=== PATIENT | male | born 1970 | race Caucasian/White ===

== ENCOUNTER 2019-05-12 13:21 | Observation (INO) | payer BC ==
[2019-05-12] MEDS ORDERED: Acetaminophen 500 MG TAB ONE (13:37)
[2019-05-12 15:20] LABS: Troponin I Less than 0.010 ng/mL (< 0.028)
[2019-05-12] MEDS ORDERED: Acetaminophen 325 MG TAB PO PRN (16:15)
[2019-05-12] MEDS ORDERED: Nitroglycerin 0.4 MG TAB (25 Tab Bottle) PO PRN (16:15)
[2019-05-12] MEDS ORDERED: Ondansetron PF 4 MG/2 ML Vial IVP PRN (16:15)
[2019-05-12] MEDS ORDERED: Ondansetron ODT 4 MG TAB PO PRN (16:15)
[2019-05-12 17:53] LABS: Troponin I Less than 0.010 ng/mL (< 0.028)
[2019-05-12 20:52] LABS: Troponin I Less than 0.010 ng/mL (< 0.028)
[2019-05-12 21:24] VITALS: BMI 27.5
[2019-05-12] MEDS: Rosuvastatin 20 MG TAB PO SCH (21:36)
[2019-05-12] MEDS: Nicotine 14 MG PATCH TD SCH (21:37)
[2019-05-12] MEDS: Famotidine 20 MG TAB PO SCH (21:37)
[2019-05-12] MEDS: Metoprolol Tartrate 25 MG TAB PO SCH (21:40)
--- NOTE | 2019-05-13 00:20 | HP ---
PRIMARY CARE PHYSICIAN: None. CHIEF COMPLAINT: Chest pain. HISTORY OF PRESENT ILLNESS: Mr. Hyman is a 49-year-old man with a past medical history of hypertension and coronary artery disease, status post 2 stents placed in 2017. The patient states over the last few days, he has been experiencing some ongoing chest pain, shortness of breath, and dizziness that became worse when he was at work sitting at his desk earlier this morning. He states that during this time, symptoms worsened. He had felt nauseous; however, denies any vomiting. He had denied any fever, chills, any headache, palpitations, abdominal pain, or change in his stool. 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 Amadeo Mcgarry, he states that he has not seen Dr. Mcgarry in over a year. He states he has been taking his home medications as directed. His initial workup included serial troponins, which were found to be negative x2. Normal D-dimer. He underwent a portable chest x-ray, which was also found to be normal. His chest pain is now resolved status post a dose of oral nitroglycerin. REVIEW OF SYSTEMS: All other systems reviewed and found to be negative unless mentioned in the HPI. PAST MEDICAL HISTORY: Hypertension and coronary artery disease, status post stents x2. PAST SURGICAL HISTORY: Cardiac catheterization with 2 cardiac stents, vasectomy, and hernia surgery back in the 1970s. PSYCHIATRIC HISTORY: None. SOCIAL HISTORY: The patient drinks socially roughly once a week. He also states that he smokes cigarettes on occasion; however, denies any illicit drug use. The patient lives at home with his family. KNOWN ALLERGIES: No known drug allergies. CURRENT HOME MEDICATIONS: 1. Aspirin 325 mg oral daily. 2. Clopidogrel 75 mg oral daily. 3. Crestor 40 mg oral at bedtime. 4. Lisinopril 20 mg oral daily. 5. Ranexa 1000 mg oral twice daily. 6. Metoprolol 25 mg b.i.d. PHYSICAL EXAMINATION: VITAL SIGNS: BP 118/82, pulse 61, respirations 19, temperature 98.4 degrees Fahrenheit, O2 saturations 95% on room air. GENERAL: The patient is awake, alert, and oriented x3. He is currently lying comfortably in bed and in no acute distress. The patient's family is at bedside. HEENT: Atraumatic, normocephalic. Pupils are round and reactive to light. Extraocular muscles intact. Moist mucous membranes noted. NECK: Soft, supple. Trachea midline. CARDIOVASCULAR: Positive S1, S2. Regular rate and rhythm. No murmur auscultated. RESPIRATORY: Clear to auscultation bilaterally. No wheezes, rales, or rhonchi. ABDOMEN: Soft, nontender. Bowel sounds present. MUSCULOSKELETAL: Strength 5+ bilaterally upper and lower extremities. Moves all extremities equal. Pedal and radial pulses 2+ bilaterally. No edema noted. NEUROLOGIC: Cranial nerves 2 through 12 grossly intact. No focal deficits noted. Speech intact and normal. Gait not assessed. SKIN: Warm, dry, and intact. No rashes. No ulceration noted. PSYCHIATRIC: Good mood and affect. LABORATORY DATA: WBC 7.6, RBC 5.06, hemoglobin 14.9, hematocrit 43.3, platelet 155. D-dimer less than 0.27. Sodium 138, potassium 4.3, anion gap 16, BUN 13, creatinine 0.93, estimated GFR 87, glucose 188, AST 28, ALT 38. Troponin less than 0.010 x2. BNP 14.2. Lipase 53. DIAGNOSTIC IMAGING: Portable chest x-ray showed no acute findings. ASSESSMENT AND PLAN: 1. Chest pain, the patient will undergo cardiac workup including a cardiac stress test along with an echocardiogram to further evaluate his cardiac status. He will be resumed on his home medications. Depending on stress test and his echocardiogram, Cardiology Services consult will be considered. 2. Hypertension. Continue the patient's home regimen. However, due to the patient's bradycardia on arrival, his home dose of metoprolol will be cut in half to 12.5 mg twice daily and he will be closely monitored and if he tolerates this, he may or may not be able to go back on his regular 25 mg twice daily at discharge. 3. History of coronary artery disease. Continue home regimen including aspirin, Plavix, Ranexa along with lisinopril and metoprolol. We will add nitroglycerin as needed for further chest pain coverage. 4. Hyperlipidemia. Continue Crestor and check a lipid panel in the morning. 5. Deep venous thrombosis and gastrointestinal prophylaxis. 6. Code status, full code. DISPOSITION: Pending further workup and clinical findings, the patient will likely be discharged home in the next 1 to 2 days. Job ID: [id number]
[2019-05-13 04:38] LABS: #Eosinphils 0.1 thou/uL (0.0-0.7); #Lymphocytes 1.8 thou/uL (1.20-3.40); #Monocytes 0.7 thou/uL (0.11-0.59); #Neutrophils 5.9 thou/uL (1.40-6.50); %Basophils 0.4 % (0.0-1.0); %Eosinophils 1.7 % (0.0-10.0); %Lymphocytes 20.6 % (21.0-51.0); %Monocytes 8.1 % (0.0-10.0); %Neutrophils 69.2 % (42.0-75.0); Hemoglobin 14.4 g/dL (14.0-18.0); Mean Corpuscular HGB CONC 33.9 g/dL (32.0-36.0); Mean Corpuscular Hemoglobin 30.4 pg (27.0-31.0); Mean Corpuscular Volume 89.9 fL (78.0-98.0); Mean Platelet Volume 8.8 fL (7.4-10.4); Platelet Count 141 thou/uL (130-400); RBC Distribution Width 11.2 % (11.5-14.5); Red Blood Cell (RBC) Count 4.74 mill/uL (4.70-6.10); White Blood Cell (WBC) Count 8.6 thou/uL (4.8-10.8)
[2019-05-13 05:04] LABS: Anion Gap 12 mmol/L (10-20); BUN (Urea Nitrogen) 13 mg/dL (8.9-20.6); Calc. Creatinine Clearance 121 mL/min (70-130); Calcium 9.1 mg/dL (7.8-10.44); Carbon Dioxide 27 mmol/L (22-29); Cardiac Risk 2.6 (Less than 4.5); Chloride 104 mmol/L (98-107); Cholesterol 90 mg/dl (< 200 Desired); Estimated GFR-MDRD Greater than 90; Glucose 103 mg/dL (70-105); HDL Cholesterol 34 mg/dL (>60 Neg Risk); LDL Cholesterol, Calculated 26 mg/dL; Sodium 139 mmol/L (136-145); Triglycerides 149 mg/dL (Less than 150)
[2019-05-13] MEDS: Metoprolol Tartrate 25 MG TAB PO SCH ×2 (08:19→21:55)
[2019-05-13] MEDS: Clopidogrel Bisulfate 75 MG TAB PO SCH (08:20)
[2019-05-13] MEDS: Enoxaparin Sodium 40 MG/0.4 ML SYRINGE SC SCH (08:20)
[2019-05-13] MEDS: Famotidine 20 MG TAB PO SCH ×2 (08:21→21:55)
[2019-05-13] MEDS: Lisinopril 20 MG TAB PO SCH (08:25)
[2019-05-13] MEDS ORDERED: Aspirin 325 mg Enteric Coated Tablet PO SCH (09:00)
[2019-05-13] MEDS ORDERED: Regadenoson 0.4 MG/5 ML SYRINGE ONE (10:20)
[2019-05-13] MEDS ORDERED: hydrALAZINE 20 MG/ML VIAL SLOW IVP PRN (12:19)
--- NOTE | 2019-05-13 12:42 | NM ---
CARDIAC SPECT: CLINICAL HISTORY: 49-year-old male with chest pain, coronary artery disease, stent placement, hypertension, and smoker. TECHNIQUE: A myocardial perfusion scan was performed using the single isotope one day protocol with technetium-9 9m sestamibi. 11 mCi were injected intravenously for the rest exam followed by 33 mCi for the stress exam. Pharmacologic stress with Lexiscan was monitored and interpreted by Irineo Mckeon. FINDINGS: Homogeneous tracer distribution is seen in the myocardial segments on the rest images. The stress luis daniel ges demonstrate a small area of mildly decreased tracer localization in the distal anteroseptal wall. GATED SPECT LVEF: 49%. WALL MOTION EXAM: Normal. IMPRESSION: Small area of mild ischemia in the distal anteroseptal wall with complete reversibility. POS: ALEJANDRO
[2019-05-13] MEDS ORDERED: cloNIDine 0.1 MG TAB PO PRN (15:39)
--- NOTE | 2019-05-13 15:42 | PDOC.PN ---
- Subjective Encounter Start Date: 05/13/19 Encounter Start Time: 15:41 Pt seenf or followup re: chest pain. Denies any chest pain at this time. Feels better. - Objective Resuscitation Status - Order Detail: 05/12/19 16:15 Resuscitation Status Routine Co-Sign Provider: Resuscitation Status: FULL: Full Resuscitation MAR Reviewed: Yes Vital Signs & Weight: Vital Signs (12 hours) Temp Pulse Resp BP BP Pulse Ox 05/13/19 12:59 58 L 174/104 H 05/13/19 12:09 98.0 F 60 14 172/96 H 97 05/13/19 08:15 97.8 F 58 L 15 165/96 H 96 05/13/19 03:50 98.3 F 53 L 18 131/79 95 Weight Weight 170 lb 11.2 oz I&O: 05/12/19 05/13/19 05/14/19 06:59 06:59 06:59 Intake Total 300 Output Total 620 Balance -320 Result Diagrams: 05/14/19 04:35 05/14/19 04:35 EKG Reviewed by me: Yes (Tele: NSR) Phys Exam - Physical Examination Constitutional: NAD HEENT: moist MMs Neck: supple Respiratory: clear to auscultation bilateral Cardiovascular: RRR Gastrointestinal: soft Neurological: moves all 4 limbs Psychiatric: normal affect Dx/Plan (1) Chest pain Code(s): R07.9 - CHEST PAIN, UNSPECIFIED Status: Acute Comment: s/p stress test, awaiting cardiology input. (2) Hypertension Code(s): I10 - ESSENTIAL (PRIMARY) HYPERTENSION Status: Chronic Comment: Pt' s metoprolol dose was decreased due to bradycardia. Add amlodipine for elevated blood pressure. - Plan * . Review of Systems - Review of Systems Cardiovascular: negative: chest pain, palpitations, orthopnea, paroxysmal nocturnal dyspnea, edema, light headedness Gastrointestinal: negative: Nausea, Vomiting, Abdominal Pain, Diarrhea, Constipation, Melena, Hematochezia - Medications/Allergies Allergies/Adverse Reactions: Allergies Allergy/AdvReac Type Severity Reaction Status Date / Time No Known Allergies Allergy Verified 05/13/19 04:01 Medications: Current Medications Acetaminophen (Tylenol) 650 mg PO Q4H PRN PRN Reason: Headache/Fever/Mild Pain (1-3) Aspirin (Ecotrin) 325 mg PO DAILY [facility] Last Admin: 05/13/19 08:20 Dose: Not Given Clonidine (Catapres) 0.1 mg PO Q4H PRN PRN Reason: SBP Greater Than 170 Clopidogrel Bisulfate (Plavix) 75 mg PO DAILY [facility] Last Admin: 05/13/19 08:20 Dose: Not Given Enoxaparin Sodium (Lovenox) 40 mg SC 0900 [facility] Last Admin: 05/13/19 08:20 Dose: Not Given Famotidine (Pepcid) 20 mg PO BID [facility] Last Admin: 05/13/19 08:21 Dose: Not Given Hydralazine HCl (Apresoline) 10 mg SLOW IVP Q6H PRN PRN Reason: SBP Greater Than 170 Last Admin: 05/13/19 12:59 Dose: 10 mg Lisinopril (Zestril) 20 mg PO DAILY [facility] Last Admin: 05/13/19 08:25 Dose: Not Given Metoprolol Tartrate (Lopressor) 12.5 mg PO BID [facility] Last Admin: 05/13/19 08:19 Dose: Not Given Nicotine (Nicoderm Patch) 14 mg TD Q24HR [facility] Last Admin: 05/12/19 21:37 Dose: Not Given Nitroglycerin (Nitrostat) 0.4 mg PO Q5MIN PRN PRN Reason: Chest Pain Ondansetron HCl (Zofran Odt) 4 mg PO Q6H PRN PRN Reason: Nausea/Vomiting Ondansetron HCl (Zofran) 4 mg IVP Q6H PRN PRN Reason: Nausea/Vomiting Ranolazine (Ranexa) 1,000 mg PO BID [facility] Last Admin: 05/13/19 08:19 Dose: Not Given Rosuvastatin Calcium (Crestor) 40 mg PO HS [facility] Last Admin: 05/12/19 21:36 Dose: 40 mg
[2019-05-13] MEDS ORDERED: Amlodipine 5 MG TAB PO SCH (16:15)
[2019-05-13] MEDS ORDERED: Hydrochlorothiazide 25 MG TAB PO SCH (18:00)
--- NOTE | 2019-05-13 18:29 | CON ---
DATE OF CONSULTATION: 05/13/2019 REASON FOR CONSULTATION: Shortness of breath, chest pain, abnormal stress study. HISTORY OF PRESENT ILLNESS: Mr. Hyman is a very pleasant 49-year-old gentleman with past medical history of CAD, status post stent placement x2 in August 2016. This was in [place]. He states at that time he had significant shortness of breath with limited ambulation. He states he initially underwent coronary angiography and was found to have 70% stenosis, treated medically. He had recurrent symptoms and therefore underwent stent placement. He states in the interim he has had a stress study done in addition to treatment with Ranexa by his miller head at [place]. He has not been seeing his miller head at [place] for over a year. He recently presented with hypertensive urgency. Blood pressure was 220/110. He did have shortness of breath with this episode in addition to mild chest pain. The pain was in the lower sternal region and was a new finding. He is currently pain-free. Recent stress study did suggest a very small area of ischemia present along the distal anteroseptal wall with LVEF 49%. PAST MEDICAL HISTORY: CAD, status post stent placement, vasectomy, and hernia repair. SOCIAL HISTORY: He does intermittently smoke. Positive alcohol use. ALLERGIES: NONE. PAST SURGICAL HISTORY: As above. REVIEW OF SYSTEMS: A 10-point review of systems is reviewed as above, otherwise negative. PHYSICAL EXAMINATION: VITAL SIGNS: Blood pressure 160/99, pulse 63, temperature 98.2. GENERAL: Patient is a pleasant male who is in no acute distress. The patient appears their stated age. NEUROLOGIC: The patient is alert and oriented x3 with no focal neurologic deficits. HEENT: Sclerae without icterus. Mouth has moist mucous membranes with normal pallor. NECK: No JVD. Carotid upstroke brisk. No bruits bilaterally. LUNGS: Clear to auscultation with unlabored respirations. BACK: No scoliosis or kyphosis. CARDIAC: Regular rate and rhythm with normal S1 and S2. No S3 or S4 noted. No significant rubs, murmurs, thrills, or gallops noted throughout the precordium. PMI is not displaced. There is no parasternal heave. ABDOMEN: Soft, nontender, nondistended. No peritoneal signs present. No hepatosplenomegaly. No abnormal striae. EXTREMITIES: 2+ femoral and 2+ dorsalis pedis pulses. No cyanosis, clubbing, or edema. SKIN: No gross abnormalities. PERTINENT LABORATORY DATA: Hemoglobin 14.4, creatinine 0.82. Troponin negative. IMPRESSION: 1. Hypertensive urgency. 2. Chest pain. 3. Coronary artery disease. 4. Abnormal stress study. RECOMMENDATIONS: Mr. Hyman's recent stress study is felt to be low risk. He has a very small area in the distal anteroseptal region only. His LVEF is at lower limits of normal. I discussed proceeding with coronary angiography versus medical therapy. Given the risks and benefits of both, he decided to proceed with medical therapy. At this point, it would be utmost important to proceed with aggressive blood pressure management. He is currently on amlodipine 5 mg q.a.m. We will decrease his aspirin 81 q.a.m. We will also recommend hydrochlorothiazide 12.5 mg one p.o. first dose now, then 12.5 In a.m. Once the blood pressure managed, we would be happy to follow up as an outpatient. Job ID: [id number] [facility]
[2019-05-13] MEDS: Nicotine 14 MG PATCH TD SCH (21:56)
[2019-05-13] MEDS: Rosuvastatin 20 MG TAB PO SCH (21:57)
[2019-05-14 05:01] LABS: #Eosinphils 0.2 thou/uL (0.0-0.7); #Lymphocytes 1.8 thou/uL (1.20-3.40); #Monocytes 0.7 thou/uL (0.11-0.59); %Basophils 0.3 % (0.0-1.0); %Eosinophils 2.5 % (0.0-10.0); %Lymphocytes 23.1 % (21.0-51.0); %Monocytes 8.9 % (0.0-10.0); %Neutrophils 65.2 % (42.0-75.0); Hemoglobin 16.2 g/dL (14.0-18.0); Mean Corpuscular HGB CONC 32.7 g/dL (32.0-36.0); Mean Corpuscular Hemoglobin 29.3 pg (27.0-31.0); Mean Corpuscular Volume 89.5 fL (78.0-98.0); Mean Platelet Volume 8.8 fL (7.4-10.4); Platelet Count 158 thou/uL (130-400); RBC Distribution Width 11.2 % (11.5-14.5); Red Blood Cell (RBC) Count 5.52 mill/uL (4.70-6.10); White Blood Cell (WBC) Count 7.6 thou/uL (4.8-10.8)
[2019-05-14 05:23] LABS: Anion Gap 13 mmol/L (10-20); BUN (Urea Nitrogen) 13 mg/dL (8.9-20.6); Calc. Creatinine Clearance 118 mL/min (70-130); Carbon Dioxide 27 mmol/L (22-29); Chloride 102 mmol/L (98-107); Estimated GFR-MDRD Greater than 90; Glucose 116 mg/dL (70-105); Sodium 138 mmol/L (136-145)
[2019-05-14] MEDS: Clopidogrel Bisulfate 75 MG TAB PO SCH (08:14)
[2019-05-14] MEDS: Famotidine 20 MG TAB PO SCH (08:15)
[2019-05-14] MEDS: Enoxaparin Sodium 40 MG/0.4 ML SYRINGE SC SCH (08:15)
[2019-05-14] MEDS: Lisinopril 20 MG TAB PO SCH (08:17)
[2019-05-14] MEDS: Metoprolol Tartrate 25 MG TAB PO SCH (08:19)
[2019-05-14] MEDS ORDERED: Amlodipine 5 MG TAB PO SCH (09:00)
[2019-05-14] MEDS ORDERED: Aspirin 81 mg Enteric Coated Tablet PO SCH (09:00)
[2019-05-14] MEDS ORDERED: Hydrochlorothiazide 25 MG TAB PO SCH (09:00)
[2019-05-14 11:25] VITALS: BP 144/87; TEMP 98.3
--- NOTE | 2019-05-14 22:23 | DIS ---
DATE OF ADMISSION: 05/12/2019 DATE OF DISCHARGE: 05/14/2019 PRIMARY CARE PROVIDER: None. DISCHARGE DIAGNOSES: 1. Hypertensive urgency. 2. Chest pain. 3. Coronary artery disease. 4. Abnormal stress study. 5. Bradycardia. CONDITION OF PATIENT ON THE DAY OF DISCHARGE: Stable. I assessed Mr. Hyman on the day of discharge. He denies any chest pain or shortness of breath. Vital signs are stable. S1 and S2 are heard, regular. Lungs are clear to auscultation bilaterally. DISCHARGE MEDICATIONS: 1. Aspirin dose decreased to 81 mg daily. 2. Plavix 75 mg daily. 3. Lisinopril 20 mg at bedtime. 4. Ranexa 1000 mg 2 times a day. 5. Crestor 40 mg daily. 6. Nicoderm CQ 14 mg patch daily. 7. Amlodipine 5 mg daily. 8. Hydrochlorothiazide 12.5 mg daily. 9. Metoprolol tartrate dose decreased to 12.5 mg 2 times a day. CONSULTATIONS DURING THIS HOSPITALIZATION: Cardiology, Dr. Driver. HOSPITAL COURSE: Mr. Hyman is a pleasant 49-year-old gentleman who was admitted to [facility] on 05/12/2019, for chest pain. He was also found to be bradycardic. His beta antonieta dose was decreased. He underwent nuclear stress test, which showed a small area of mild ischemia in the distal anteroseptal wall with complete reversibility. Cardiology Service was consulted. It was felt to be low risk. After discussion with Cardiology Service, the patient decided to proceed with medical therapy. His blood pressures were elevated during this hospitalization. Therefore, amlodipine and hydrochlorothiazide were added. He has been advised to check his blood pressure and heart rate 3 times a day and show the readings to his primary care provider. He will also need to follow up with Cardiology Service. FOLLOWUP: With primary care provider and Cardiology Service. LABORATORY DATA: On the day of discharge, he has normal electrolytes, normal creatinine, and an unremarkable CBC. Many thanks for allowing me to participate in your patient's care. Please feel free to contact me with any questions or concerns. DISCHARGE DESTINATION: Home. Job ID: [id number]
== END 2019-05-14 12:40 | disposition home or self-care (01) ==
LOC: ERS 13:21 → 2NO 17:52
PROVIDERS: ADMIT Internal Medicine; ATTEND Internal Medicine
DX: R07.9 Chest pain, unspecified (principal); R06.02 Shortness of breath; R42 Dizziness and giddiness; I16.0 Hypertensive urgency; I10 Essential (primary) hypertension; I25.10 Atherosclerotic heart disease of native coronary artery without angina pectoris; F17.210 Nicotine dependence, cigarettes, uncomplicated; Z79.82 Long term (current) use of aspirin; Z79.899 Other long term (current) drug therapy; Z95.5 Presence of coronary angioplasty implant and graft
CPT/HCPCS: 36415; 78452; 80048; 80061; 84443; 85025; 85379; 93005; 93017; 93306; 96374; A9500; G0378; J0360; J1650; J2785

== ENCOUNTER 2019-12-31 11:36 | Observation (INO) | payer BC, OTHER ==
[2019-12-31] MEDS ORDERED: hydrALAZINE 20 MG/ML VIAL SLOW IVP PRN (13:01)
[2019-12-31] MEDS ORDERED: Senokot S 8.6-50 MG TAB PO PRN (13:03)
[2019-12-31] MEDS ORDERED: Ondansetron PF 4 MG/2 ML Vial IVP PRN (13:03)
[2019-12-31] MEDS ORDERED: Calcium Carbonate 500 MG ChewTAB PO PRN (13:03)
[2019-12-31] MEDS ORDERED: Ondansetron ODT 4 MG TAB PO PRN (13:03)
[2019-12-31] MEDS ORDERED: Acetaminophen 325 MG TAB PO PRN (13:03)
[2019-12-31] MEDS ORDERED: Aspirin Chewable 81 MG TAB ONE (13:08)
--- NOTE | 2019-12-31 14:55 | MRI ---
MRI BRAIN WITHOUT CONTRAST: Date: 12/31/2019 INDICATION: Stroke. FINDINGS: Ventricles have normal size and position. No evidence of restricted diffusion. No evidence of acute i nfarct, mass, or hemorrhage. No significant white matter abnormality. The intracranial internal carot id arteries and cerebral arteries show flow-voids. Dural venous sinuses are patent. Small mucus retention cyst anterior left maxillary sinus measuring approximately 1.0 cm. Paranasal si nuses otherwise appear clear. IMPRESSION: No evidence of acute process. POS: ALEJANDRO
[2019-12-31 15:08] VITALS: BMI 27.9
--- NOTE | 2019-12-31 18:17 | HP ---
PRIMARY CARE PHYSICIAN: Dr. Valentino Rios. PRIMARY MINERAL INDUSTRY TEACHER: Dr. Driver. CHIEF COMPLAINT: Lightheadedness. HISTORY OF PRESENT ILLNESS: The patient is a 49-year-old male with coronary artery disease, status post stent placement, hypertension, hyperlipidemia, and factor V Leiden, presented to the hospital with above complaints. The patient had an episode of lightheadedness earlier this morning while he was at work. It was gradual in onset. He was unable to focus. He describes that he was not able to think clearly. The above episode lasted for about 20 minutes or so. He also had approximately 1 minute duration of unresponsiveness. His face was flushed at that time. There was no seizure-like activity reported. No tongue biting or urinary incontinence reported. His symptoms resolved before he arrived to [facility]. He is unable to recall the details on the above episode. According to the spouse, he has some issues with memory recently. He had to reset his e-mail password 3 times last week. PAST MEDICAL HISTORY: 1. Coronary artery disease, status post stent placement. 2. Hypertension. 3. Hyperlipidemia. 4. Factor V Leiden. PAST SURGICAL HISTORY: 1. Cardiac catheterization. 2. Vasectomy. 3. Hernia surgery. ALLERGIES: NO KNOWN DRUG ALLERGIES. CURRENT HOME MEDICATIONS: 1. Plavix 75 mg daily. 2. Lisinopril 20 mg at bedtime. 3. Ranexa 1000 mg b.i.d. 4. Crestor 40 mg daily. 5. Amlodipine 5 mg daily. 6. Hydrochlorothiazide 12.5 mg daily. SOCIAL HISTORY: The patient continues to smoke on and off. He lives at home with his family. He drinks alcohol socially. FAMILY HISTORY: Negative for premature coronary artery disease. There is family history of Factor V Leiden deficiency. REVIEW OF SYSTEMS: All other review of systems was reviewed and were found negative. PHYSICAL EXAMINATION: VITAL SIGNS: In the emergency room showed temperature 98, respirations of 18, pulse of 67, blood pressure of 139/94, and O2 saturation 98% on room air. GENERAL: A 49-year-old male, in no apparent distress. HEENT: Head, atraumatic and normocephalic. Sclerae are anicteric. Moist mucous membranes. No oral lesion. NECK: Supple. No JVD. No carotid bruit. LUNGS: Clear to auscultation bilaterally. No wheezing, rales, or rhonchi. HEART: S1 and S2 present. Regular rate and rhythm. No rubs or gallops. ABDOMEN: Soft and nontender. Bowel sounds present. No rebound or guarding. EXTREMITIES: No edema or calf tenderness. NEUROLOGIC: Cranial nerves 2 through 12 are normal on examination. Power was 5/5 in all extremities. PSYCHIATRY: Alert, awake, and oriented x3. Normal affect. SKIN: Warm and dry. LYMPH NODES: No palpable lymph nodes in the neck. PERIPHERAL VASCULAR: Radial pulses palpable bilaterally. MUSCULOSKELETAL: No joint swelling or tenderness. LABORATORY DATA: EKG by my review showed sinus rhythm with nonspecific ST-T wave changes. Urine drug screen was negative. WBC 11.6 with hemoglobin 16.1 and platelet 203. PT/INR and PTT in normal range. Chemistry showed sodium 140, potassium 3.9, chloride 104, bicarb 26, BUN 14, and creatinine 0.81. LFTs in normal range. Troponin was negative. CT scan of the brain by my review was negative for acute findings. Chest x-ray by my review was negative. IMPRESSION: 1. Lightheadedness/dizziness. Rule out cerebrovascular accident. 2. Coronary artery disease, status post stent placement. 3. Hypertension. 4. Hyperlipidemia. 5. History of factor V Leiden. 6. Tobacco dependence. PLAN: The patient will be monitored in the stroke unit. We will complete stroke workup including echocardiogram, carotid Doppler, and MRI of the brain. Neurology will be consulted. We will add 81 mg aspirin for now. We will reduce the dose of amlodipine and lisinopril for now. Continue statins. Fasting lipid profile in a.m. The patient will benefit from an event monitor as outpatient. The patient and the family understand the above plan of care. Job ID: [id number]
--- NOTE | 2019-12-31 18:17 | ULT ---
EXAM: Carotid Doppler PROVIDED CLINICAL HISTORY: TIA COMPARISON: None FINDINGS: Grayscale and color Doppler sonography with spectral analysis was performed of the extracranial carot id system bilaterally. There is no evidence for a hemodynamically significant internal carotid artery stenosis by peak systolic velocity or ratio criteria. Antegrade flow is seen in the vertebral arteries. IMPRESSION: No sonographic evidence for a hemodynamically significant internal carotid artery stenosis.
[2019-12-31] MEDS: Lisinopril 5 MG TAB PO SCH (20:32)
[2019-12-31] MEDS: Amlodipine 5 MG TAB PO SCH (20:32)
[2019-12-31] MEDS: Rosuvastatin 20 MG TAB PO SCH (20:33)
[2019-12-31] MEDS ORDERED: Atorvastatin Calcium 40 MG TAB PO SCH (21:00)
[2020-01-01 05:15] LABS: Cardiac Risk 2.2 (Less than 4.5)
[2020-01-01] MEDS: Aspirin 81 mg Enteric Coated Tablet PO SCH (08:40)
[2020-01-01] MEDS: Lisinopril 5 MG TAB PO SCH ×2 (08:40→20:28)
[2020-01-01] MEDS: Clopidogrel Bisulfate 75 MG TAB PO SCH (08:40)
[2020-01-01] MEDS: Amlodipine 5 MG TAB PO SCH ×2 (08:41→20:28)
[2020-01-01] MEDS ORDERED: FLU VACC QS2019-20(6MOS UP)/PF 60 MCG/0.5 ML SYRINGE IM ONE (09:00)
--- NOTE | 2020-01-01 12:15 | CON ---
DATE OF TELEMEDICINE CONSULTATION: 01/01/2020 CHIEF COMPLAINT: Altered mental status. HISTORY OF PRESENT ILLNESS: The patient is a 49-year-old man, who was brought to the emergency room following an incident at work. He was at his desk yesterday on Thursday, doing his work, everything was fine, he zoned out. He was told by his coworkers that they were snapping fingers at him, he could not respond. He became unresponsive. No witnessed tonic chronic activity was noted. He had approximately 1 minute of unresponsiveness. His face was flushed per his chart. His symptoms resolved after he came to the ER and he thinks his symptoms may have lasted about 30 minutes or so. This never happened to him before. Recently, he has had some issues with his memory in the past two weeks or so and he had to reset his email password a few times. PREVIOUS MEDICAL HISTORY: Coronary artery disease, status post stent placement; hypertension; hyperlipidemia; factor V Leiden mutation. SURGICAL HISTORY: Cardiac catheterization, vasectomy, and hernia surgery. ALLERGIES: NO KNOWN DRUG ALLERGIES. MEDICATIONS: At home; 1. Plavix. 2. Lisinopril. 3. Ranexa. 4. Crestor. 5. Amlodipine and hydrochlorothiazide. SOCIAL HISTORY: He does smoke on and off. He lives at home with his family. 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 FAMILY HISTORY: Positive for Factor V Leiden mutation in his mother and sister , not in his brother. There are also other members on the maternal side of the family which have similar hematological abnormality. There is also history of hypertension in his mother. Mother also had leg surgery and she has restless legs. Father is 68 also and has coronary artery disease. No family history of stroke. REVIEW OF SYSTEMS: PULMONARY: Negative for shortness of breath or cough. GI: Negative for nausea, vomiting, or diarrhea. NEUROLOGIC: Positive for altered mental status, altered level of consciousness for about 30 minutes or so. OPHTHALMOLOGIC: Negative for any vision changes. DERMATOLOGIC: Negative for any skin lesions or rash. LABORATORY WORKUP: White count 11.6, hemoglobin 16.1, hematocrit 49.1, platelets 203. Chemistry; sodium 140, potassium 3.9, chloride 104, bicarb 26, BUN 14, creatinine 0.81. TSH is normal. Lipid profile is within normal limits. Urine screen is negative. Urine tox screen is also negative. His MRI was negative for any acute stroke or acute event or any structural abnormalities. PHYSICAL EXAMINATION: VITAL SIGNS: Blood pressure 112/74, pulse 54, temperature 98.2. GENERAL APPEARANCE: Well-built, well-nourished man. CHEST: Clear vesicular breathing. CARDIOVASCULAR: S1 and S2 heard. No murmurs. ABDOMEN: Soft and nontender. No organomegaly noted. NEUROLOGIC: Higher intellectual functions, normal orientation to time, place, and person. Appropriate conversation. Cranial nerves 2 through 12, normal extraocular movements. Pupils are reactive to light bilaterally and no facial asymmetry noted. Normal sensation of face bilaterally. Tongue midline, no atrophy noted, normal elevation of palate. Motor; bulk normal, tone normal. Strength is 5/5 in iliopsoas, hamstrings, quadriceps, ankle dorsiflexion, plantar flexion, deltoid, biceps, triceps, wrist extension and flexion, finger extension and flexion bilaterally. Sensory examination, normal to touch bilaterally in upper and lower extremities. Cerebellar exam, normal [id number] and [id number]. Deep tendon reflexes 2+ throughout. IMPRESSION: The patient with alteration in mental status, which lasted about 30 minutes and he had no witnessed seizure activity and this is unusual for him. He is generally very healthy, and stroke risk factor is Factor V Leiden mutation, but he did not have an acute stroke at this time. This is more likely an atypical seizure, history and description do not sound like transient global amnesia. I think he may have had a seizure. Since this is the first seizure, he does not need to be medicated. RECOMMENDATIONS: Please complete his EEG, make sure it is normal prior to discharge, and he can follow up with Dr. Pham as outpatient. He already has a followup with his mattress stripper this week. Job ID: [id number] [facility]
--- NOTE | 2020-01-01 13:08 | PDOC.HOSPP ---
- Subjective Encounter Date: 01/01/20 Encounter Time: 10:30 Subjective: Patient seen and examined for AMS. No new focal deficits. No new complaints. No overnight events - Objective Vital Signs & Weight: Vital Signs (12 hours) Temp Pulse Resp BP BP BP Pulse Ox 01/01/20 12:53 98.0 F 56 L 18 119/84 97 01/01/20 11:15 117/78 01/01/20 09:35 112/74 140/79 01/01/20 08:41 54 L 01/01/20 08:40 54 L 01/01/20 07:50 98.2 F 54 L 16 122/77 97 01/01/20 04:00 98.2 F 60 16 115/67 96 Weight Weight 173 lb I&O: 12/31/19 01/01/20 01/02/20 06:59 06:59 06:59 Intake Total 660 Balance 660 Additional Labs: Laboratory Tests 01/01/20 01/01/20 04:23 04:23 Vitamin B12 366 Folate 9.10 Radiology Reviewed by me: No (Carotid - negative) EKG Reviewed by me: Yes (Tele SR) Hospitalist ROS - Review of Systems Respiratory: denies: cough, dry, shortness of breath, hemoptysis, SOB with excertion, pleuritic pain, sputum, wheezing, other Cardiovascular: denies: chest pain, palpitations, orthopnea, paroxysmal noc. dyspnea, edema, light headedness, other Gastrointestinal: denies: nausea, vomiting, abdominal pain, diarrhea, constipation, melena, hematochezia, other - Medication Medications: Active Medications Generic Name Dose Route Start Last Admin Trade Name Evelyn PRN Reason Stop Dose Admin Amlodipine Besylate 2.5 mg 12/31/19 21:00 01/01/20 08:41 Norvasc PO 2.5 mg BID BURTON Administration Aspirin 81 mg 01/01/20 09:00 01/01/20 08:40 Ecotrin PO 81 mg DAILY BURTON Administration Clopidogrel Bisulfate 75 mg 01/01/20 09:00 01/01/20 08:40 Plavix PO 75 mg DAILY BURTON Administration Lisinopril 5 mg 12/31/19 21:00 01/01/20 08:40 Zestril PO 5 mg BID BURTON Administration Ranolazine 1,000 mg 12/31/19 21:00 01/01/20 08:41 Ranexa PO 1,000 mg BID BURTON Administration Rosuvastatin Calcium 40 mg 12/31/19 21:00 12/31/19 20:33 Crestor PO 40 mg HS BURTON Administration - Exam General Appearance: NAD Heart: RRR, no gallops Respiratory: no wheezes, no ronchi Gastrointestinal: non-tender, non-distended, normal bowel sounds Extremities: no cyanosis Neurological: no new deficit Hosp A/P - Plan DVT proph w/SCDs IMPRESSION: 1. Lightheadedness/dizziness. 2. Coronary artery disease, status post stent placement. 3. Hypertension. 4. Hyperlipidemia. 5. History of factor V Leiden. 6. Tobacco dependence. PLAN: MRI negative Cont ASA/Plavix Echo pending Cont low dose Amlodipine/Lisinopril EEG in AM per Neuro Event monitor at dc
[2020-01-01] MEDS: Rosuvastatin 20 MG TAB PO SCH (20:29)
[2020-01-02] MEDS ORDERED: Cyanocobalamin (Vitamin B-12) 1,000 MCG TAB PO SCH (09:00)
[2020-01-02] MEDS: Aspirin 81 mg Enteric Coated Tablet PO SCH (09:26)
[2020-01-02] MEDS: Amlodipine 5 MG TAB PO SCH (09:26)
[2020-01-02] MEDS: Clopidogrel Bisulfate 75 MG TAB PO SCH (09:26)
[2020-01-02] MEDS: Lisinopril 5 MG TAB PO SCH (09:28)
[2020-01-02 11:20] VITALS: BP 140/79; TEMP 97.7
--- NOTE | 2020-01-02 16:00 | EEG ---
Referring Physician: Carla GARCIA EEG # [id number] TEST TYPE: ROUTINE PORTABLE INPATIENT REPORT: AN EEG USING THE INTERNATIONAL TEN-TWENTY SYSTEM OF ELECTRODE PLACEMENT WAS PERFORMED. The waking background is a medium amplitude 9-10 hertz alpha frequency. The patient remained awake throughout the study. Photic stimulation and hyperventilation were unremarkable. No epileptiform features were seen. IMPRESSION: THIS IS A NORMAL AWAKE EEG. Polo Coach: ANGI Director Of Cardiac Cath Lab: [email or web address]
--- NOTE | 2020-01-02 18:56 | CON ---
DATE OF CONSULTATION: 01/02/2020 REASON FOR CONSULTATION: Syncope. HISTORY OF PRESENT ILLNESS: Mr. Hyman is a 49-year-old gentleman who was seen and evaluated in the past. He was last seen in the office in June 2019. He has a history of mild coronary artery disease, hypertension, and hyperlipidemia in addition to factor V Leiden. He recently presented with mental status changes. He states he could hear surroundings but would not respond. This lasts for 30 minutes. By the time he proceeded to the emergency room, his symptoms had resolved. He states he did not lose consciousness. He did state he could not respond. No chest pain or pressure noted. He was seen and evaluated by Neurology and felt this is consistent with a focal CVA. PAST MEDICAL HISTORY: CAD, mild ischemia, hypertension, bradycardia, hyperlipidemia, factor V Leiden, vasectomy, hernia repair. MEDICATIONS: 1. Rosuvastatin. 2. Plavix. 3. Ranexa. 4. Amlodipine. 5. Lisinopril. 6. Aspirin. 7. Metoprolol. 8. Hydrochlorothiazide. FAMILY HISTORY: Negative for CAD. SOCIAL HISTORY: No current tobacco or alcohol use. ALLERGIES: NONE. REVIEW OF SYSTEMS: A 10-point review of systems is reviewed and is as above, otherwise negative. PHYSICAL EXAMINATION: GENERAL: Patient is a pleasant male who is in no acute distress. The patient appears their stated age. VITAL SIGNS: Blood pressure 140/79, pulse 68, and temperature 97.7. NEUROLOGIC: The patient is alert and oriented x3 with no focal neurologic deficits. HEENT: Sclerae without icterus. Mouth has moist mucous membranes with normal pallor. NECK: No JVD. Carotid upstroke brisk. No bruits bilaterally. LUNGS: Clear to auscultation with unlabored respirations. BACK: No scoliosis or kyphosis. CARDIAC: Regular rate and rhythm with normal S1 and S2. No S3 or S4 noted. No significant rubs, murmurs, thrills, or gallops noted throughout the precordium. PMI is not displaced. There is no parasternal heave. ABDOMEN: Soft, nontender, nondistended. No peritoneal signs present. No hepatosplenomegaly. No abnormal striae. EXTREMITIES: 2+ femoral and 2+ dorsalis pedis pulses. No cyanosis, clubbing, or edema. SKIN: No gross abnormalities. PERTINENT LABORATORY DATA: CK and troponin negative. IMPRESSION: 1. Mental status changes. 2. Mild coronary artery disease. 3. Factor V Leiden. RECOMMENDATIONS: The patient's symptoms can certainly be suggestive of a dysrhythmia. His symptoms though appear to be more suggestive of a focal seizure. His LVEF appeared normal. To assess for dysrhythmia, recommend 3-week event recorder. This has been placed. Otherwise, I have no further recommendations. We will follow up as an outpatient. Job ID: [id number]
--- NOTE | 2020-01-02 21:39 | DIS ---
DATE OF ADMISSION: 12/31/2019 DATE OF DISCHARGE: 01/02/2020 DISCHARGE DISPOSITION: Home. FOLLOWUP: 1. Follow up with primary care physician, Dr. Valentino Rios in 1 week. 2. Follow up with Neurology, Dr. Pham and Cardiology, Dr. Driver. ALLERGIES: NO KNOWN DRUG ALLERGIES. THE PATIENT WAS SEEN ON THE DAY OF DISCHARGE. DENIES ANY NEW COMPLAINTS. NO NEW STROKE-LIKE SYMPTOMS OR CHEST PAIN REPORTED. DISCHARGE MEDICATIONS: 1. Aspirin 81 mg daily. 2. Plavix 75 mg daily. 3. Ranexa 1000 mg twice a day. 4. Amlodipine 5 mg at bedtime. 5. Lisinopril/hydrochlorothiazide 10/12.5 mg daily. 6. Crestor, dose was reduced to 20 mg at bedtime. INPATIENT CONSULTANTS: 1. Cardiology, Dr. Driver. 2. Neurology, Dr. Boss. SIGNIFICANT LABORATORY DATA: 1. Vitamin B12 of 366. 2. Fasting lipid showed triglycerides 76, cholesterol 80, LDL 28, and HDL 37. 3. Carotid Doppler was negative for hemodynamically significant stenosis. 4. MRI of the brain was negative for acute CVA. It showed a small mucous retention cyst, anterior left maxillary sinus, approximately 1 cm. 5. Echocardiogram showed left ventricular ejection fraction of 60% with trace mitral regurgitation and trace tricuspid regurgitation. 6. EEG was normal. BRIEF HOSPITAL COURSE: The patient is a 49-year-old male with coronary artery disease, status post stent placement; hypertension; hyperlipidemia; and factor V Leiden, presented to the emergency room with lightheadedness along with confusion that lasted for up to 20 to 30 minutes. Please refer to the history and physical for further details. The patient was admitted to the hospital with a diagnosis of lightheadedness/dizziness, rule out cerebrovascular accident. He underwent stroke workup as discussed above, which was essentially negative. EEG was negative as well. The cause of the symptoms appears to be unclear. Event monitor has been arranged. He was advised to take aspirin along with Plavix. Lisinopril dose was reduced to 10 mg. Crestor dose was reduced to 20 mg from 40 mg due to very low LDL level of 28 along with cholesterol of 80. Tobacco cessation was emphasized. He was advised not to drive until cleared by MD. FINAL DIAGNOSES: 1. Lightheadedness/dizziness of unclear etiology. 2. Coronary artery disease, status post stent placement. 3. Hypertension. 4. Hyperlipidemia. 5. History of factor V Leiden. 6. Tobacco dependence. 7. The patient understands the above plan of care. Job ID: [id number]
== END 2020-01-02 14:56 | disposition home or self-care (01) ==
LOC: ERS 11:36 → 2SE 13:05
PROVIDERS: ADMIT Internal Medicine; ATTEND Internal Medicine
DX: R42 Dizziness and giddiness (principal); I25.10 Atherosclerotic heart disease of native coronary artery without angina pectoris; I10 Essential (primary) hypertension; E11.9 Type 2 diabetes mellitus without complications; E78.5 Hyperlipidemia, unspecified; F17.210 Nicotine dependence, cigarettes, uncomplicated; D68.51 Activated protein C resistance; Z79.02 Long term (current) use of antithrombotics/antiplatelets; Z79.82 Long term (current) use of aspirin; Z79.899 Other long term (current) drug therapy; Z95.5 Presence of coronary angioplasty implant and graft
CPT/HCPCS: 36415; 70551; 80061; 82607; 82746; 90471; 90686; 90732; 93005; 93306; 93880; 95816; 95819; G0008; G0009; G0378